=== PATIENT | female | born 1975 | race Caucasian/White ===

== ENCOUNTER 2019-06-14 22:23 | Emergency (ER) | payer MEDICARE, MEDICAID ==
[~2019-06-14] VITALS: Ht 160 cm; Wt 68.1 kg
[2019-06-14] MEDS ORDERED: NO HOME MEDS (22:45)
[2019-06-14 22:50] LABS: BASOPHILS # (AUTO) 0.1 X10'3 (0-0.2); BASOPHILS % (AUTO) 0.5 % (0-1); EOSINOPHILS % (AUTO) 0.2 % (0-6); HEMATOCRIT 39.7 % (35.0-45.0); HEMOGLOBIN 13.6 g/dl (12.0-16.0); LYMPHOCYTES # (AUTO) 1.1 X10'3 (1.1-4.8); LYMPHOCYTES % (AUTO) 9.7 % (21-51); MEAN CORPUSCULAR HEMOGLOBIN 30.7 PG (27.0-31.0); MEAN CORPUSCULAR HGB CONC 34.2 g/dL (33.0-36.5); MEAN CORPUSCULAR VOLUME 89.7 FL (78-98); MEAN PLATELET VOLUME 8.2 FL (7.4-10.4); MONOCYTES # (AUTO) 0.9 X10'3 (0-0.9); MONOCYTES % (AUTO) 7.6 % (2-12); NEUTROPHILS # (AUTO) 9.5 X10'3 (1.8-7.7); PLATELET COUNT 350 X10'3 (140-440); RED BLOOD COUNT 4.43 X10'6 (4.20-5.60); RED CELL DISTRIBUTION WIDTH 12.9 % (11.5-14.5); WHITE BLOOD COUNT 11.6 X10'3 (4.5-11.0)
[2019-06-14 23:06] LABS: CLARITY,URINE CLEAR (Clear); COLOR,URINE YELLOW (Yellow); GLUCOSE, URINE NEGATIVE (Neg); KETONES,URINE TRACE mg/dl (Neg); LEUKOCYTE ESTERASE ,URINE NEGATIVE (Neg); NITRITES, URINE NEGATIVE (Neg); OCCULT BLOOD,URINE TRACE-INTACT (Neg); PH,URINE 6.5 (4.8-8.0); PROTEIN,URINE 30 mg/dl (Neg); UROBILINOGEN,URINE 0.2 E.U/dL (0.2-1.0)
[2019-06-14 23:10] LABS: UA COLLECTION TYPE CLN CATCH MIDSTREAM
[2019-06-14 23:11] LABS: ALBUMIN 3.5 G/DL (3.4-5.0); ALKALINE PHOSPHATASE 88 IU/L (46-116); ANION GAP 13 (8-16); BILIRUBIN,TOTAL 0.3 MG/DL (0.1-1.0); BLOOD UREA NITROGEN 11 MG/DL (7-18); BUN/CREATININE RATIO 12.1 (6.6-38.0); CALCIUM 8.1 MG/DL (8.5-10.1); CHLORIDE 104 MMOL/L (99-107); CREATININE 0.91 MG/DL (0.40-0.90); ETHANOL 0.087 GM/DL (0.0-0.010); SODIUM 137 MMOL/L (135-145); TOTAL CARBON DIOXIDE 19.8 MMOL/L (24-32); eGFR 67 ML/MIN
[2019-06-14 23:12] LABS: BACTERIA,URINE 1+ /HPF (Neg); MUCUS STRANDS NONE SEEN /LPF (Neg); RBC,URINE 0-2 /HPF (0-2); SQUAMOUS EPITHELIAL CELL,UR MANY /LPF (FEW); WBC,URINE 0-4 /HPF (0-4)
[2019-06-14 23:13] LABS: RENAL CELLS, URINE FEW /HPF
[2019-06-14 23:17] LABS: URINE AMPHETAMINE SCREEN NEGATIVE (Neg); URINE BARBITUATE SCREEN NEGATIVE (Neg); URINE BENZODIAZEPINES SCREEN NEGATIVE (Neg); URINE CANNABINOID SCREEN NEGATIVE (Neg); URINE COCAINE SCREEN NEGATIVE (Neg); URINE METHADONE SCREEN NEGATIVE (Neg); URINE OPIATE SCREEN NEGATIVE (Neg); URINE PHENCYCLIDINE SCREEN NEGATIVE (Neg)
[2019-06-14 23:25] LABS: ALANINE AMINOTRANSFERASE 42 U/L (12-78); ALBUMIN/GLOBULIN RATIO 0.7 (1.1-1.5); GLUCOSE 114 MG/DL (70-104); POTASSIUM 3.3 MMOL/L (3.5-5.1); TOTAL PROTEIN 8.4 G/DL (6.4-8.2)
--- NOTE | 2019-06-14 23:30 | NUR ---
Pt requesting her cell phone to get her husbands phone number . she wants to call to remind him to take his evening meds. Pts belongings have been locked in [facility] lock. Pt updated that we will get her cell shortly. Pt is cooperative.
[2019-06-14 23:37] LABS: ASPARTATE AMINO TRANSFERASE 42 U/L (10-37)
[2019-06-15 00:09] LABS: URINE HCG NEGATIVE (NEG)
--- NOTE | 2019-06-15 00:39 | NUR ---
Pt talked wtih her on her phone and reports he then hung up on her. She stated she texted him and told him not to call back and not to come pick her up. States "i own the house ut he can have it because its over...I dont know what Im going to do.,..but it over". Pt tearful. Pt now medically cleared to got to overflow area.
--- NOTE | 2019-06-15 01:07 | NUR ---
REPORT GIVEN TO JERMEIAH CALIXTO, OVERFLOW. PT MOVED FROM ER 16 TO BED 20
--- NOTE | 2019-06-15 01:08 | NUR ---
VERBAL RECEIVED FROM DR. GARCIA FOR IBUPROFEN 400 MG FOR [place]IAMSON.
--- NOTE | 2019-06-15 01:08 | NUR ---
PT REPORTS SHE WAS TAKING ENALAPRIL 10 MG BID AND HTCZ UNKNOWN DOSE DAILY, BUT HAS NOT FILLED THE PERSCRIPTION "FOR AWHILE".
--- NOTE | 2019-06-15 01:09 | NUR ---
, ANDREIA, PHONE [phone]
--- NOTE | 2019-06-15 01:45 | NUR ---
RECEIVED PT FROM ED ROOM 16 TO OVERFLOW BED 20 . PT AMBUALETD OVER WITH STEADY GAIT AND GREEN SCRUBS ON. PT BELONGING LIST COMPLETE. PT ASKED TO VISIT [facility] BATHROOM , FLAT AFFECT, "DEER IN HEADLIGHTS" LOOK ON FACE. EDUCATED PATIENT THAT WE ARE GOING TO KEEP HER SAFE AND [facility] WILL BE BY [place] FOR FURTHER MH EVALUATION. WILL CONTINUE TO MONITOR
--- NOTE | 2019-06-15 01:50 | NUR ---
PT INQUIRING ABOUT HER . REMINDED HER THAT WE HAVE HIS NUMBER AND SHE WOULD BE ABLE TO PHONE HIM IN THE MORNING AFTER 8 AM PER PROTOCOL IN OVERFLOW
--- NOTE | 2019-06-15 02:18 | NUR ---
PT SLEEPING ON HER LEFT SIDE COMFORTABLY. RESP UNLABORED WILL CONTINUE TO MONITOR
--- NOTE | 2019-06-15 03:45 | NUR ---
PT SLEEPING ON HER LEFT SIDE, RESPIRATIONS UNLABORED WILL CONTINUE TO MONITOR
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
--- NOTE | 2019-06-15 04:46 | NUR ---
PT CURRENTLY RESTING ON HER LEFT SIDE. HOPEFUL SHE WILL FALL BACK TO SLEEP . WILL CONTINUE TO MONITOR PT AND HER ACTIVITY AND EMOTIONS
--- NOTE | 2019-06-15 05:37 | NUR ---
PT WENT BACK ASLEEP . SLEEPING PEACFULLY SUPINE IN BED , RESPIRATIONS UNLABORED WILL CONTINUE TO MONITOR
--- NOTE | 2019-06-15 06:55 | NUR ---
Recieved Pt awake in bed sitting up. Quiet, yet verbal and wanting head of bed raised so she can sit up. Does not want to sleep anymore and waiting for breakfast.
[2019-06-15] MEDS: lisinopril 10 MG tablet PO SCH (08:20)
--- NOTE | 2019-06-15 10:03 | NUR ---
Pt ate breakfast and conversed with this RN in pleasant manner. Reports not wanting to go home where lives. Received order for Lisinopril 10 mg which she took at 8am. Pt got up and performed AM adl's in bathroom and given sanitary pad for mensus which began today per client. Pt returned to bed and is resting. Currently denies active SI and states she wants to live.
[2019-06-15] MEDS: ibuprofen tablet 400 MG TABLET PO PRN (10:16)
--- NOTE | 2019-06-15 11:20 | NUR ---
Face sheet faxed to [facility].
--- NOTE | 2019-06-15 13:18 | NUR ---
Pt awake in bed and just finished eating lunch. Pt appears depressed with blunted affect, yet pleasant and cooperative. Spoke to on phone, and currently meeting with [facility] minesweeping officer.
--- NOTE | 2019-06-15 14:11 | NUR ---
pt awake sitting in bed
--- NOTE | 2019-06-15 16:57 | NUR ---
Pt remains calm and cooperative. Displaying much patience as she awaits [facility] decision to keep her on a hold or not. Curr Addendum: 06/15/19 at 1658 by ESAATO Currently resting in bed after phone call with .
--- NOTE | 2019-06-15 19:04 | NUR ---
Spoke to Grover from [facility] who reported that he would not be extending the pt's hold and that the [facility] will look for placement in the AM.
--- NOTE | 2019-06-15 21:08 | NUR ---
Pt's linen changed due to small amount of bloody drainage from menses. Pt given pad and hospital underwear. She is back in bed at this time.
--- NOTE | 2019-06-15 23:06 | NUR ---
The patient is in bed sleeping at this time. She does not show signs of discomfort or distress. The patient is in direct line of sight of the nursing station. Water and the patient's glasses are available at bedside.
--- NOTE | 2019-06-16 00:47 | NUR ---
relieving RN for lunch, pt is sleeping quietly on bed, resp even and unlabored
--- NOTE | 2019-06-16 02:33 | NUR ---
Breaking nurse, pt. continues to sleep, laying on his rt. side, rr even and unlabored.
--- NOTE | 2019-06-16 04:29 | NUR ---
Pt is sleeping at this time. She does not show signs of distress or discomfort. Pt is in direct line of sight of nursing station.
--- NOTE | 2019-06-16 06:04 | NUR ---
Pt is sleeping on her right side in bed at this time with visible respirations. Pt does not show signs of distress or discomfort. AT 0540, pt was given fresh hygiene pad which she changed in the bathroom.
--- NOTE | 2019-06-16 06:33 | NUR ---
Patient is sleeping, no distress noted
[2019-06-16] MEDS: ibuprofen tablet 400 MG TABLET PO PRN (06:56)
[2019-06-16] MEDS: lisinopril 10 MG tablet PO SCH (06:57)
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
--- NOTE | 2019-06-16 08:30 | NUR ---
Patient questioned this comic book writer regarding when she would be released. She denies depression, SI, anxiety at this time. Explained that she would have to be reevaluated by SCSW to determine if she could be discharged early.
--- NOTE | 2019-06-16 10:30 | NUR ---
Informed this sba underwriter that her spouse is on his way from [place] to visit.
--- NOTE | 2019-06-16 12:05 | NUR ---
Patient at bedside visiting. Had to drive from [place]. Alerted the [facility] office that patient could use a reevaluation of her 5150. If held through tomorrow will have to wait until Tuesday for a ride back to [place].
--- NOTE | 2019-06-16 13:05 | NUR ---
pt given lunch tray and starting to eat.
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
--- NOTE | 2019-06-16 15:10 | NUR ---
Pt. c/o painful rash under right breast. Appears to be a fungal rash, spoke with MD who ordered nystatin powder. Patient was reevaluated by SCSW who also consulted with spouse regarding a safety plan. Spouse did not feel there is adequate support at this time for safety plan and requested she be reevaluated tomorrow prior to expiration of 5150.
--- NOTE | 2019-06-16 16:30 | NUR ---
Provided Nurse to Nurse for possible placement at [facility] in [place]. Accepted to [facility]. [facility] to notify [facility] to arrange for transport.
[2019-06-16 17:08] VITALS: BP 156/103
--- NOTE | 2019-06-16 17:47 | NUR ---
[facility] arrived for patient to transport to [facility] in [place]. Patient calm, cooperative. No s/s of distress noted. slight anxiety as she did not anticipate being placed out of the area. Spouse is aware and patient has been assured she will be transferred home upon arrival. All belongings provided to carrier driver.
[2019-06-16] MEDS ORDERED: nystatin 15 GM powder TP SCH (21:00)
== END 2019-06-16 17:53 ==
LOC: ER 22:24
DX: S60.812A Abrasion of left wrist, initial encounter (principal); R94.6 Abnormal results of thyroid function studies; Z88.8 Allergy status to other drugs, medicaments and biological substances; X83.8XXA Intentional self-harm by other specified means, initial encounter; Y93.89 Activity, other specified; Y92.89 Other specified places as the place of occurrence of the external cause; Y99.8 Other external cause status
CPT/HCPCS: 36415; 80053; 80305; 80320; 81001; 81025; 84443; 85025; 99285